=== PATIENT | male | born 1980 | race Two or more races ===

== ENCOUNTER 2023-03-15 01:38 | Emergency (ER) | payer OTHER ==
[~2023-03-15] VITALS: Ht 188 cm; Wt 137.4 kg
[2023-03-15] MEDS ORDERED: CORTISPORIN EAR10 M1 OPHT (05:16)
== END 2023-03-15 06:10 ==
LOC: ER 01:38
DX: T16.1XXA Foreign body in right ear, initial encounter (principal)